=== PATIENT | male | born 1960 | race African-American/Black ===

== ENCOUNTER 2016-06-24 16:56 | Inpatient (IN) | payer OTHER ==
[2016-06-24 17:53] VITALS: BMI 27.8
--- NOTE | 2016-06-24 19:21 | HP ---
Admission ROS [facility] Chief Complaint: i want to go to rehab Allergies/Adverse Reactions: Allergies Allergy/AdvReac Type Severity Reaction Status Date / Time No Known Allergies Allergy Verified 06/24/16 17:55 History of Present Illness: 55 years old male with long history of alcohol nicotine dependence, hypertension asthma copd arthritis of legs, bipolar is admitted to rehab Exam Limitations: No Limitations - Ebola screening Have you traveled outside of the country in the last 21 days: No Have you had contact with anyone from an Ebola affected area: No Have you been sick,other than usual withdrawal symptoms: No Do you have a fever: No - Review of Systems Constitutional: No Symptoms Reported EENT: reports: Other (eye glasses) Respiratory: reports: SOB at Rest Cardiac: reports: No Symptoms Reported GI: reports: Poor Fluid Intake : reports: No Symptoms Reported Musculoskeletal: reports: Back Pain, Joint Pain Integumentary: reports: No Symptoms Reported Neuro: reports: No Symptoms reported Endocrine: reports: No Symptoms Reported Hematology: reports: No Symptoms Reported Psychiatric: reports: Judgement Intact, Orientated x3, Anxious, Depressed Other Systems: Reviewed and Negative Patient History - Patient Medical History Hx Anemia: No Hx Asthma: No Hx Chronic Obstructive Pulmonary Disease (COPD): Yes Hx Cancer: No Hx Cardiac Disorders: No Hx Congestive Heart Failure: No Hx Hypertension: Yes Hx Hypercholesterolemia: No Hx Pacemaker: No HX Cerebrovascular Accident: No Hx Seizures: No Hx Dementia: No Hx Diabetes: No Hx Gastrointestinal Disorders: No Hx Liver Disease: No Hx Genitourinary Disorders: No Hx Sexually Transmitted Disorders: No Hx Renal Disease (ESRD): No Hx Thyroid Disease: No Hx Human Immunodeficiency Virus (HIV): No Hx Hepatitis C: No Hx Depression: No Hx Suicide Attempt: No Hx Bipolar Disorder: Yes Hx Schizophrenia: No - Patient Surgical History Past Surgical History: Yes Hx Neurologic Surgery: No Hx Cataract Extraction: No Hx Cardiac Surgery: No Hx Lung Surgery: No Hx Breast Surgery: No Hx Breast Biopsy: No Hx Abdominal Surgery: No Hx Appendectomy: No Hx Cholecystectomy: No Hx Genitourinary Surgery: No Hx Orthopedic Surgery: No Other Surgical History: Circumcision in 1980 Anesthesia Reaction: No - PPD History Previous Implant?: Yes Documented Results: Negative w/proof Implanted On Prior R Admission?: Yes Date: 03/24/16 Results: 0 mm PPD to be Administered?: No - Smoking Cessation Smoking history: Current every day smoker Have you smoked in the past 12 months: Yes Aproximately how many cigarettes per day: 4 Cigars Per Day: 0 Hx Chewing Tobacco Use: No Initiated information on smoking cessation: Yes 'Breaking Loose' booklet given: 06/24/16 - Substance & Tx. History Hx Alcohol Use: Yes Hx Substance Use: Yes Substance Use Type: Alcohol, Cocaine Hx Substance Use Treatment: Yes - Substances Abused Alcohol Route: Oral Frequency: Daily Amount used: pint volka Age of first use: 13 Date of Last Use: 06/21/16 Family Disease History - Family Disease History Family Disease History: Diabetes: Father (htn), Brother, Sister (one sister - DM, drug use), Heart Disease: Father, Mother (htn) Admission Physical Exam S - Vital Signs Vital Signs: Vital Signs - 24 hr 06/24/16 17:50 Temperature 96.7 F L Pulse Rate 83 Respiratory 18 Rate Blood Pressure 152/96 - Physical General Appearance: Yes: No Apparent Distress, Nourished, Appropriately Dressed HEENTM: Yes: Hearing grossly Normal, Normal ENT Inspection, Normocephalic, Normal Voice Respiratory: Yes: Chest Non-Tender, Labored Respiration, No Respiratory Distress , No Accessory Muscle Use, Hyperresonant, Inspiration Neck: Yes: Supple, Trachea in good position Breast: Yes: Breasts Symetrical Cardiology: Yes: Regular Rhythm, Regular Rate, S1, S2 Abdominal: Yes: Non Tender, Soft Genitourinary: Yes: Within Normal Limits Back: Yes: Normal Inspection Musculoskeletal: Yes: full range of Motion, Gait Steady, Back pain, Muscle Pain , Muscle weakness (legs) Extremities: Yes: Normal Range of Motion, Non-Tender Neurological: Yes: Fully Oriented, Alert, Motor Strength 5/5, Normal Response, Depressed Affect Integumentary: Yes: Warm Lymphatic: Yes: Within Normal Limits - Diagnostic (1) Alcohol dependence with uncomplicated withdrawal Current Visit: Yes Status: Acute (2) Hypertension Current Visit: Yes Status: Acute Qualifiers: Hypertension type: essential hypertension Qualified Code(s): I10 - Essential (primary) hypertension (3) COPD (chronic obstructive pulmonary disease) Current Visit: Yes Status: Acute Qualifiers: COPD type: emphysema Emphysema type: unilateral Qualified Code(s ): J43.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 - Detox or Rehab [facility] Level of Care: Observation Bed Claeared for Rehab Admission: Yes [facility] Breath Alcohol Content Breath Alcohol Content: 0 Urine Drug Screen - Results Drug Screen Negative: No Urine Drug Screen Results: MALINDA-Cocaine, BZO-Benzodiazepines
[2016-06-24] MEDS ORDERED: LOPERAMIDE HCL 2 MG CAPSULE PO PRN (19:43)
[2016-06-24] MEDS ORDERED: ACETAMINOPHEN 325 MG TABLET (FP) PO PRN (19:43)
[2016-06-24] MEDS ORDERED: MENTHOL/PHENOL 1 EACH UD MM PRN (19:43)
[2016-06-24] MEDS ORDERED: MAGNESIUM HYDROX 2400MG/30ML ORAL SUSPENSION 30 ML CUP PO PRN (19:43)
[2016-06-24] MEDS ORDERED: MAGNESIUM CITRATE 300 ML BOTTLE PO PRN (19:43)
[2016-06-24] MEDS ORDERED: diphenhydrAMINE HCL 50 MG CAPSULE PO PRN (19:43)
[2016-06-24] MEDS ORDERED: P-EPHED 60MG/TRIPROLIDI 2.5MG TABLET PO PRN (19:43)
[2016-06-24] MEDS ORDERED: hydrOXYzine PAMOATE 50 MG CAPSULE (FP) PO PRN (19:43)
[2016-06-24] MEDS ORDERED: guaiFENesin/D-METHORPHAN HB 10 ML UNIT-DOSE CUPS PO PRN (19:43)
[2016-06-24] MEDS ORDERED: ALBUTEROL SO4 6.7 GM HFA INHALER IH PRN (19:46)
[2016-06-24] MEDS ORDERED: NAPROXEN 500 MG TABLET (FP) PO PRN (19:48)
[2016-06-24] MEDS ORDERED: CYCLOBENZAPRINE HCL 10 MG TABLET (FP) PO PRN (19:48)
[2016-06-24] MEDS: BUDESONIDE/FORMETEROL FUMARATE 80/4.5 mcg INHALER IH SCH (22:31)
[2016-06-24] MEDS: ACLIDINIUM BROMIDE 400 MCG/INH AERO.POWD IH SCH (22:31)
[2016-06-24] MEDS: THIAMINE HCL 100 MG TABLET (FP) PO SCH (22:31)
[2016-06-24] MEDS: LISINOPRIL 20 MG TABLET (FP) PO SCH (22:31)
[2016-06-24] MEDS: CLOTRIMAZOLE 1% CREAM 15 GM TUBE TP SCH (22:34)
[2016-06-24 22:57] LABS: URINE APPEARANCE CLEAR; URINE BILIRUBIN NEGATIVE (NEGATIVE); URINE BLOOD NEGATIVE (NEGATIVE); URINE COLOR STRAW; URINE GLUCOSE (UA) NEGATIVE (NEGATIVE); URINE KETONE NEGATIVE (NEGATIVE); URINE LEUK ESTERASE NEGATIVE (NEGATIVE); URINE NITRITE NEGATIVE (NEGATIVE); URINE PROTEIN NEGATIVE (NEGATIVE); URINE UROBILINOGEN NEGATIVE E.U./dl (0.2-1.0)
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
[2016-06-25] MEDS: PRENATAL VITAMINS W/ FOLIC ACID TABLET (FP) PO SCH (09:58)
[2016-06-25] MEDS: BUDESONIDE/FORMETEROL FUMARATE 80/4.5 mcg INHALER IH SCH ×2 (09:58→21:43)
[2016-06-25] MEDS: predniSONE 20 MG TABLET (UD) PO SCH (09:59)
[2016-06-25] MEDS: CLOTRIMAZOLE 1% CREAM 15 GM TUBE TP SCH ×2 (09:59→23:33)
[2016-06-25] MEDS: amLODIPine BESYLATE 10 MG TABLET (FP) PO SCH (09:59)
[2016-06-25] MEDS: QUEtiapine FUMARATE 50 MG TABLET PO SCH ×2 (10:00→21:42)
[2016-06-25] MEDS: ACLIDINIUM BROMIDE 400 MCG/INH AERO.POWD IH SCH ×2 (10:00→21:43)
[2016-06-25] MEDS: FLUoxetine HCL 20 MG CAPSULE (FP) PO SCH (10:00)
[2016-06-25 10:13] LABS: MCH 33.5 pg (25.7-33.7); MCHC 33.5 g/dl (32.0-35.9); MEAN CELL VOLUME 100.1 fl (80-96); MEAN PLT VOLUME 8.8 fl (7.5-11.1); PLATELET COUNT 252 K/MM3 (134-434); RDW 12.7 % (11.9-15.9); WHITE BLOOD COUNT 8.2 K/mm3 (4.0-10.0)
[2016-06-25 10:20] LABS: ALBUMIN 3.5 g/dl (3.4-5.0)
[2016-06-25 10:25] LABS: ALK PHOS 85 U/L (45-117); ANION GAP 8 (8-16); BILIRUBIN,TOTAL 0.4 mg/dL (0.2-1.0); CALCIUM 8.9 mg/dL (8.5-10.1); CO2 27 mmol/L (21-32); CREATININE 1.2 mg/dL (0.7-1.3); GLUCOSE,RANDOM 79 mg/dL (74-106); SGOT/AST 22 U/L (15-37); SGPT/ALT 42 U/L (12-78); TOT PROT 6.3 g/dl (6.4-8.2)
--- NOTE | 2016-06-25 13:20 | EKG ---
Test Reason : Blood Pressure : / mmHG Vent. Rate : 077 BPM Atrial Rate : 077 BPM P-R Int : 170 ms QRS Dur : 096 ms QT Int : 386 ms P-R-T Axes : 062 046 042 degrees QTc Int : 436 ms NORMAL SINUS RHYTHM POSSIBLE LEFT ATRIAL ENLARGEMENT LEFT VENTRICULAR HYPERTROPHY ABNORMAL ECG NO PREVIOUS ECGS AVAILABLE Confirmed by NADIA MADDOX MD ([id number]) on 06/25/2016 1:20:15 PM Referred By: Confirmed By:NADIA MADDOX MD
[2016-06-25] MEDS: ALBUTEROL SO4 2.5/IPRATROPIUM 0.5 INH SOL 3 ML VIAL.NEB. NEB PRN (17:40)
[2016-06-25] MEDS: MAG HYDROX/AL HYDROX/SIMETH 30 ML UNIT-DOSE CUP PO PRN (20:07)
[2016-06-25] MEDS: LISINOPRIL 20 MG TABLET (FP) PO SCH (21:42)
[2016-06-25] MEDS: QUEtiapine FUMARATE 200 MG TABLET PO SCH (21:42)
[2016-06-25] MEDS: THIAMINE HCL 100 MG TABLET (FP) PO SCH (21:42)
[2016-06-26] MEDS: BUDESONIDE/FORMETEROL FUMARATE 80/4.5 mcg INHALER IH SCH ×2 (09:50→22:04)
[2016-06-26] MEDS: amLODIPine BESYLATE 10 MG TABLET (FP) PO SCH (09:50)
[2016-06-26] MEDS: PRENATAL VITAMINS W/ FOLIC ACID TABLET (FP) PO SCH (09:50)
[2016-06-26] MEDS: predniSONE 20 MG TABLET (UD) PO SCH (09:51)
[2016-06-26] MEDS: CLOTRIMAZOLE 1% CREAM 15 GM TUBE TP SCH ×2 (09:51→22:03)
[2016-06-26] MEDS: FLUoxetine HCL 20 MG CAPSULE (FP) PO SCH (09:51)
[2016-06-26] MEDS: QUEtiapine FUMARATE 50 MG TABLET PO SCH ×2 (09:52→22:04)
[2016-06-26] MEDS: ACLIDINIUM BROMIDE 400 MCG/INH AERO.POWD IH SCH ×2 (09:53→22:06)
[2016-06-26] MEDS: MAG HYDROX/AL HYDROX/SIMETH 30 ML UNIT-DOSE CUP PO PRN ×2 (14:19→22:05)
[2016-06-26] MEDS: ALBUTEROL SO4 2.5/IPRATROPIUM 0.5 INH SOL 3 ML VIAL.NEB. NEB PRN (14:21)
[2016-06-26] MEDS: QUEtiapine FUMARATE 200 MG TABLET PO SCH (22:04)
[2016-06-26] MEDS: THIAMINE HCL 100 MG TABLET (FP) PO SCH (22:04)
[2016-06-26] MEDS: LISINOPRIL 20 MG TABLET (FP) PO SCH (22:04)
[2016-06-27] MEDS: QUEtiapine FUMARATE 50 MG TABLET PO SCH ×2 (09:59→21:37)
[2016-06-27] MEDS: amLODIPine BESYLATE 10 MG TABLET (FP) PO SCH (09:59)
[2016-06-27] MEDS: FLUoxetine HCL 20 MG CAPSULE (FP) PO SCH (09:59)
[2016-06-27] MEDS: PRENATAL VITAMINS W/ FOLIC ACID TABLET (FP) PO SCH (09:59)
[2016-06-27] MEDS: predniSONE 20 MG TABLET (UD) PO SCH (10:00)
[2016-06-27] MEDS: ACLIDINIUM BROMIDE 400 MCG/INH AERO.POWD IH SCH ×2 (10:01→21:38)
[2016-06-27] MEDS: CLOTRIMAZOLE 1% CREAM 15 GM TUBE TP SCH ×2 (10:01→21:37)
[2016-06-27] MEDS: BUDESONIDE/FORMETEROL FUMARATE 80/4.5 mcg INHALER IH SCH ×2 (10:01→21:37)
[2016-06-27] MEDS: MAG HYDROX/AL HYDROX/SIMETH 30 ML UNIT-DOSE CUP PO PRN (14:28)
[2016-06-27] MEDS: ALBUTEROL SO4 2.5/IPRATROPIUM 0.5 INH SOL 3 ML VIAL.NEB. NEB PRN (20:26)
[2016-06-27] MEDS: THIAMINE HCL 100 MG TABLET (FP) PO SCH (21:37)
[2016-06-27] MEDS: LISINOPRIL 20 MG TABLET (FP) PO SCH (21:37)
[2016-06-27] MEDS: QUEtiapine FUMARATE 200 MG TABLET PO SCH (21:37)
[2016-06-28] MEDS: PRENATAL VITAMINS W/ FOLIC ACID TABLET (FP) PO SCH (09:58)
[2016-06-28] MEDS: BUDESONIDE/FORMETEROL FUMARATE 80/4.5 mcg INHALER IH SCH ×2 (09:59→21:19)
[2016-06-28] MEDS: CLOTRIMAZOLE 1% CREAM 15 GM TUBE TP SCH ×2 (09:59→21:19)
[2016-06-28] MEDS: QUEtiapine FUMARATE 50 MG TABLET PO SCH ×2 (09:59→21:20)
[2016-06-28] MEDS: amLODIPine BESYLATE 10 MG TABLET (FP) PO SCH (09:59)
[2016-06-28] MEDS: FLUoxetine HCL 20 MG CAPSULE (FP) PO SCH (09:59)
[2016-06-28] MEDS: predniSONE 20 MG TABLET (UD) PO SCH (09:59)
[2016-06-28] MEDS: ALBUTEROL SO4 2.5/IPRATROPIUM 0.5 INH SOL 3 ML VIAL.NEB. NEB PRN (09:59)
[2016-06-28] MEDS: ACLIDINIUM BROMIDE 400 MCG/INH AERO.POWD IH SCH ×2 (11:56→21:21)
[2016-06-28] MEDS: MAG HYDROX/AL HYDROX/SIMETH 30 ML UNIT-DOSE CUP PO PRN (14:42)
[2016-06-28] MEDS: LISINOPRIL 20 MG TABLET (FP) PO SCH (21:20)
[2016-06-28] MEDS: QUEtiapine FUMARATE 200 MG TABLET PO SCH (21:20)
[2016-06-28] MEDS: THIAMINE HCL 100 MG TABLET (FP) PO SCH (21:20)
[2016-06-29] MEDS: amLODIPine BESYLATE 10 MG TABLET (FP) PO SCH (09:50)
[2016-06-29] MEDS: predniSONE 20 MG TABLET (UD) PO SCH (09:50)
[2016-06-29] MEDS: FLUoxetine HCL 20 MG CAPSULE (FP) PO SCH (09:50)
[2016-06-29] MEDS: QUEtiapine FUMARATE 50 MG TABLET PO SCH ×2 (09:50→21:09)
[2016-06-29] MEDS: PRENATAL VITAMINS W/ FOLIC ACID TABLET (FP) PO SCH (09:50)
[2016-06-29] MEDS: BUDESONIDE/FORMETEROL FUMARATE 80/4.5 mcg INHALER IH SCH ×2 (09:50→21:08)
[2016-06-29] MEDS: ACLIDINIUM BROMIDE 400 MCG/INH AERO.POWD IH SCH ×2 (09:50→21:09)
[2016-06-29] MEDS: CLOTRIMAZOLE 1% CREAM 15 GM TUBE TP SCH ×2 (09:51→21:09)
[2016-06-29] MEDS: ALBUTEROL SO4 2.5/IPRATROPIUM 0.5 INH SOL 3 ML VIAL.NEB. NEB PRN (14:38)
[2016-06-29] MEDS: THIAMINE HCL 100 MG TABLET (FP) PO SCH (21:08)
[2016-06-29] MEDS: LISINOPRIL 20 MG TABLET (FP) PO SCH (21:09)
[2016-06-29] MEDS: QUEtiapine FUMARATE 200 MG TABLET PO SCH (21:09)
[2016-06-30] MEDS: predniSONE 20 MG TABLET (UD) PO SCH (09:45)
[2016-06-30] MEDS: QUEtiapine FUMARATE 50 MG TABLET PO SCH (09:45)
[2016-06-30] MEDS: CLOTRIMAZOLE 1% CREAM 15 GM TUBE TP SCH ×2 (09:45→21:23)
[2016-06-30] MEDS: amLODIPine BESYLATE 10 MG TABLET (FP) PO SCH (09:45)
[2016-06-30] MEDS: FLUoxetine HCL 20 MG CAPSULE (FP) PO SCH (09:46)
[2016-06-30] MEDS: PRENATAL VITAMINS W/ FOLIC ACID TABLET (FP) PO SCH (09:46)
[2016-06-30] MEDS: BUDESONIDE/FORMETEROL FUMARATE 80/4.5 mcg INHALER IH SCH ×2 (09:46→21:22)
[2016-06-30] MEDS: ACLIDINIUM BROMIDE 400 MCG/INH AERO.POWD IH SCH ×2 (09:46→22:37)
[2016-06-30] MEDS: MAG HYDROX/AL HYDROX/SIMETH 30 ML UNIT-DOSE CUP PO PRN (10:37)
[2016-06-30] MEDS ORDERED: ALBUTEROL SO4 2.5/IPRATROPIUM 0.5 INH SOL 3 ML VIAL.NEB. NEB PRN (11:05)
--- NOTE | 2016-06-30 14:36 | PN ---
Psychiatric Progress Note Vital Signs: Vital Signs Period Temp Pulse Resp BP Sys/Shi Pulse Ox Last 24 Hr 97.9 F 79-89 18-20 124-131/73-81 Date of Session: 06/30/16 Chief Complaint:: Insomnia HPI: Patient addressing Alcohol Dependence comorbid with Nicotine Dependence and Bipolar II Disorder ROS: COPD, HTN, Arthritis, LBP, Fungal infection of feet Current Medications: Active Medications Generic Name Dose Route Start Last Admin Trade Name Freq PRN Reason Stop Dose Admin Acetaminophen 650 mg 06/24/16 19:43 Tylenol - PO Q4H PRN PAIN Aclidinium [place] 1 puff 06/24/16 22:00 06/30/16 09:46 Tudorza - IH Not Given BID CARLO Al Hydroxide/Mg Hydroxide 30 ml 06/24/16 19:43 06/30/16 10:37 Mylanta Oral Suspension - PO 30 ml Q6H PRN Administration DYSPEPSIA Albuterol Sulfate 2 puff 06/24/16 19:46 Ventolin Hfa Inhaler - IH Q4H PRN SHORT OF BREATH/WHEEZING Albuterol Sulfate 1 amp 06/30/16 11:12 Ventolin 0.083% Nebulizer Soln - NEB Q6H PRN SHORT OF BREATH/WHEEZING Amlodipine Besylate 10 mg 06/25/16 10:00 06/30/16 09:45 Norvasc - PO 10 mg DAILY CARLO Administration Budesonide/Formoterol Fumarate 2 puff 06/24/16 22:00 06/30/16 09:46 Symbicort 80/4.5mcg - IH Not Given BID CARLO Clotrimazole 1 applic 06/24/16 22:00 06/30/16 09:45 Lotrimin 1% Cream - TP Not Given BID CARLO Cyclobenzaprine HCl 10 mg 06/24/16 19:48 Flexeril - PO TID PRN MUSCLE SPASMS Diphenhydramine HCl 50 mg 06/24/16 19:43 Benadryl - PO HSMR1 PRN INSOMNIA Eucalyptus/Menthol/Phenol/Sorbitol 1 each 06/24/16 19:43 Cepastat Lozenge - MM Q4H PRN SORE THROAT Fluoxetine HCl 20 mg 06/25/16 10:00 06/30/16 09:46 Prozac - PO 20 mg DAILY CARLO Administration Guaifenesin 10 ml 06/24/16 19:43 Robitussin Dm - PO Q6H PRN COUGH Hydroxyzine Pamoate 50 mg 06/24/16 19:43 Vistaril - PO Q4H PRN AGITATION Lisinopril 20 mg 06/24/16 22:00 06/29/16 21:09 Prinivil PO 20 mg HS CARLO Administration Loperamide HCl 4 mg 06/24/16 19:43 Imodium - PO Q6H PRN DIARRHEA Magnesium Citrate 300 ml 06/24/16 19:43 Citroma - PO Q48H PRN CONSTIPATION Magnesium Hydroxide 30 ml 06/24/16 19:43 Milk Of Magnesia - PO DAILY PRN CONSTIPATION Naproxen 500 mg 06/24/16 19:48 Naprosyn - PO BID PRN BACK PAIN Prednisone 20 mg 06/25/16 10:00 06/30/16 09:45 Deltasone - PO 20 mg DAILY CARLO Administration Multivit/Folic Acid/Iron 1 tab 06/25/16 10:00 06/30/16 09:46 Vitamins (Sjr) - PO Not Given DAILY CARLO Pseudoephedrine/Triprolidine 1 combo 06/24/16 19:43 Actifed - PO TID PRN NASAL CONGESTION Quetiapine Fumarate 300 mg 06/30/16 22:00 Seroquel - PO HS CARLO Thiamine HCl 100 mg 06/24/16 22:00 06/29/16 21:08 Vitamin B1 - PO 100 mg HS CARLO Administration Medication(s) Change(s): Increase Seroquel to 300 mg po HS Current Side Effect: No Lab tests ordered: Yes Lab tests reviewed: Yes Provider note:: Patient reports experiencing difficulty to asleep. Told script writer that he has not been sleeping poorly despite takind Seroquel 250 mg at bedtime. Requests that his bedtime dosage be increased to 300 mg Total face to face time:: 25 Mental Status Exam - Mental Status Exam Alert and Oriented to: Time, Place, Person Cognitive Function: Fair Patient Appearance: Well Groomed Mood: Hopeful, Euthymic Affect: Appropriate Patient Behavior: Cooperative Speech Pattern: Clear Voice Loudness: Normal Thought Process: Intact Thought Disorder: Not Present Hallucinations: Denies Suicidal Ideation: Denies Insight/Judgement: Fair Sleep: Poorly Appetite: Good Muscle strength/Tone: Normal Gait/Station: Normal Psychiatric Treatment Plan - Problem List (1) Alcohol dependence with uncomplicated withdrawal Current Visit: Yes (2) Nicotine dependence Current Visit: Yes Qualifiers: Nicotine product type: cigarettes Substance use status: uncomplicated Qualified Code(s): F17.210 - Nicotine dependence, cigarettes, uncomplicated (3) Bipolar II disorder Current Visit: Yes (4) COPD (chronic obstructive pulmonary disease) Current Visit: Yes Qualifiers: COPD type: emphysema Emphysema type: unilateral Qualified Code(s ): J43.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 2) Start Seroquel 300 mg po HS. 3) Monitor progress
[2016-06-30] MEDS: QUEtiapine FUMARATE 300 MG TABLET PO SCH (21:22)
[2016-06-30] MEDS: LISINOPRIL 20 MG TABLET (FP) PO SCH (21:23)
[2016-06-30] MEDS: THIAMINE HCL 100 MG TABLET (FP) PO SCH (21:23)
[2016-07-01] MEDS: amLODIPine BESYLATE 10 MG TABLET (FP) PO SCH (09:41)
[2016-07-01] MEDS: FLUoxetine HCL 20 MG CAPSULE (FP) PO SCH (09:41)
[2016-07-01] MEDS: PRENATAL VITAMINS W/ FOLIC ACID TABLET (FP) PO SCH (09:42)
[2016-07-01] MEDS: predniSONE 20 MG TABLET (UD) PO SCH (09:42)
[2016-07-01] MEDS: CLOTRIMAZOLE 1% CREAM 15 GM TUBE TP SCH ×2 (09:43→21:11)
[2016-07-01] MEDS: ACLIDINIUM BROMIDE 400 MCG/INH AERO.POWD IH SCH ×2 (09:43→21:12)
[2016-07-01] MEDS: BUDESONIDE/FORMETEROL FUMARATE 80/4.5 mcg INHALER IH SCH ×2 (09:43→21:10)
[2016-07-01] MEDS: THIAMINE HCL 100 MG TABLET (FP) PO SCH (21:11)
[2016-07-01] MEDS: LISINOPRIL 20 MG TABLET (FP) PO SCH (21:11)
[2016-07-01] MEDS: QUEtiapine FUMARATE 300 MG TABLET PO SCH (21:11)
[2016-07-01] MEDS: ALBUTEROL SO4 0.083% IH SOL 2.5 MG/3 ML VIAL.NEB. NEB PRN (21:12)
[2016-07-02] MEDS: amLODIPine BESYLATE 10 MG TABLET (FP) PO SCH (09:43)
[2016-07-02] MEDS: predniSONE 20 MG TABLET (UD) PO SCH (09:43)
[2016-07-02] MEDS: PRENATAL VITAMINS W/ FOLIC ACID TABLET (FP) PO SCH (09:43)
[2016-07-02] MEDS: FLUoxetine HCL 20 MG CAPSULE (FP) PO SCH (09:43)
[2016-07-02] MEDS: CLOTRIMAZOLE 1% CREAM 15 GM TUBE TP SCH ×2 (09:43→21:25)
[2016-07-02] MEDS: ALBUTEROL SO4 0.083% IH SOL 2.5 MG/3 ML VIAL.NEB. NEB PRN ×2 (09:46→21:28)
[2016-07-02] MEDS: BUDESONIDE/FORMETEROL FUMARATE 80/4.5 mcg INHALER IH SCH ×2 (11:00→21:23)
[2016-07-02] MEDS: ACLIDINIUM BROMIDE 400 MCG/INH AERO.POWD IH SCH ×2 (11:00→21:25)
[2016-07-02] MEDS: THIAMINE HCL 100 MG TABLET (FP) PO SCH (21:24)
[2016-07-02] MEDS: LISINOPRIL 20 MG TABLET (FP) PO SCH (21:24)
[2016-07-02] MEDS: QUEtiapine FUMARATE 300 MG TABLET PO SCH (21:24)
[2016-07-03] MEDS: BUDESONIDE/FORMETEROL FUMARATE 80/4.5 mcg INHALER IH SCH ×2 (09:46→21:12)
[2016-07-03] MEDS: ACLIDINIUM BROMIDE 400 MCG/INH AERO.POWD IH SCH ×2 (09:47→21:12)
[2016-07-03] MEDS: predniSONE 20 MG TABLET (UD) PO SCH (09:47)
[2016-07-03] MEDS: CLOTRIMAZOLE 1% CREAM 15 GM TUBE TP SCH ×2 (09:47→21:12)
[2016-07-03] MEDS: amLODIPine BESYLATE 10 MG TABLET (FP) PO SCH (09:47)
[2016-07-03] MEDS: FLUoxetine HCL 20 MG CAPSULE (FP) PO SCH (09:47)
[2016-07-03] MEDS: PRENATAL VITAMINS W/ FOLIC ACID TABLET (FP) PO SCH (10:00)
[2016-07-03] MEDS: THIAMINE HCL 100 MG TABLET (FP) PO SCH (21:11)
[2016-07-03] MEDS: LISINOPRIL 20 MG TABLET (FP) PO SCH (21:11)
[2016-07-03] MEDS: QUEtiapine FUMARATE 300 MG TABLET PO SCH (21:11)
[2016-07-04] MEDS: FLUoxetine HCL 20 MG CAPSULE (FP) PO SCH (09:48)
[2016-07-04] MEDS: BUDESONIDE/FORMETEROL FUMARATE 80/4.5 mcg INHALER IH SCH ×2 (09:48→21:22)
[2016-07-04] MEDS: amLODIPine BESYLATE 10 MG TABLET (FP) PO SCH (09:48)
[2016-07-04] MEDS: ACLIDINIUM BROMIDE 400 MCG/INH AERO.POWD IH SCH ×2 (09:48→21:23)
[2016-07-04] MEDS: predniSONE 20 MG TABLET (UD) PO SCH (09:48)
[2016-07-04] MEDS: CLOTRIMAZOLE 1% CREAM 15 GM TUBE TP SCH ×2 (09:48→21:23)
[2016-07-04] MEDS: PRENATAL VITAMINS W/ FOLIC ACID TABLET (FP) PO SCH (09:49)
[2016-07-04] MEDS: LISINOPRIL 20 MG TABLET (FP) PO SCH (21:22)
[2016-07-04] MEDS: QUEtiapine FUMARATE 300 MG TABLET PO SCH (21:22)
[2016-07-04] MEDS: THIAMINE HCL 100 MG TABLET (FP) PO SCH (21:22)
[2016-07-05] MEDS: FLUoxetine HCL 20 MG CAPSULE (FP) PO SCH (09:32)
[2016-07-05] MEDS: amLODIPine BESYLATE 10 MG TABLET (FP) PO SCH (09:32)
[2016-07-05] MEDS: CLOTRIMAZOLE 1% CREAM 15 GM TUBE TP SCH ×2 (09:33→21:17)
[2016-07-05] MEDS: PRENATAL VITAMINS W/ FOLIC ACID TABLET (FP) PO SCH (09:33)
[2016-07-05] MEDS: BUDESONIDE/FORMETEROL FUMARATE 80/4.5 mcg INHALER IH SCH ×2 (09:33→21:16)
[2016-07-05] MEDS: predniSONE 20 MG TABLET (UD) PO SCH (09:33)
[2016-07-05] MEDS: ACLIDINIUM BROMIDE 400 MCG/INH AERO.POWD IH SCH ×2 (09:33→21:17)
[2016-07-05] MEDS: ALBUTEROL SO4 0.083% IH SOL 2.5 MG/3 ML VIAL.NEB. NEB PRN (17:41)
[2016-07-05] MEDS ORDERED: ALBUTEROL SO4 0.083% IH SOL 2.5 MG/3 ML VIAL.NEB. NEB PRN (17:53)
[2016-07-05] MEDS: QUEtiapine FUMARATE 300 MG TABLET PO SCH (21:17)
[2016-07-05] MEDS: THIAMINE HCL 100 MG TABLET (FP) PO SCH (21:17)
[2016-07-05] MEDS: LISINOPRIL 20 MG TABLET (FP) PO SCH (21:17)
[2016-07-06] MEDS: CLOTRIMAZOLE 1% CREAM 15 GM TUBE TP SCH ×2 (09:32→21:35)
[2016-07-06] MEDS: predniSONE 20 MG TABLET (UD) PO SCH (09:32)
[2016-07-06] MEDS: amLODIPine BESYLATE 10 MG TABLET (FP) PO SCH (09:32)
[2016-07-06] MEDS: FLUoxetine HCL 20 MG CAPSULE (FP) PO SCH (09:32)
[2016-07-06] MEDS: BUDESONIDE/FORMETEROL FUMARATE 80/4.5 mcg INHALER IH SCH ×2 (09:32→21:35)
[2016-07-06] MEDS: PRENATAL VITAMINS W/ FOLIC ACID TABLET (FP) PO SCH (09:32)
[2016-07-06] MEDS: ACLIDINIUM BROMIDE 400 MCG/INH AERO.POWD IH SCH ×2 (09:33→22:47)
[2016-07-06] MEDS: QUEtiapine FUMARATE 300 MG TABLET PO SCH (21:34)
[2016-07-06] MEDS: THIAMINE HCL 100 MG TABLET (FP) PO SCH (21:35)
[2016-07-06] MEDS: LISINOPRIL 20 MG TABLET (FP) PO SCH (21:35)
[2016-07-07] MEDS: FLUoxetine HCL 20 MG CAPSULE (FP) PO SCH (10:11)
[2016-07-07] MEDS: amLODIPine BESYLATE 10 MG TABLET (FP) PO SCH (10:11)
[2016-07-07] MEDS: BUDESONIDE/FORMETEROL FUMARATE 80/4.5 mcg INHALER IH SCH ×2 (10:12→21:12)
[2016-07-07] MEDS: PRENATAL VITAMINS W/ FOLIC ACID TABLET (FP) PO SCH (10:12)
[2016-07-07] MEDS: predniSONE 20 MG TABLET (UD) PO SCH (10:12)
[2016-07-07] MEDS: CLOTRIMAZOLE 1% CREAM 15 GM TUBE TP SCH ×2 (10:12→21:13)
[2016-07-07] MEDS: ACLIDINIUM BROMIDE 400 MCG/INH AERO.POWD IH SCH ×2 (10:13→21:13)
--- NOTE | 2016-07-07 14:11 | PN ---
Psychiatric Progress Note Vital Signs: Vital Signs Period Temp Pulse Resp BP Sys/Shi Pulse Ox Last 24 Hr 98 F 71-84 16-20 131-144/72-82 Date of Session: 07/07/16 Chief Complaint:: discharge visit HPI: Patient addressing Alcohol Dependence comorbid with Nicotine Dependence and Bipolar II Disorder ROS: COPD, HTN, Arthritis, LBP, Fungal infection of feet medically managed Current Medications: Active Medications Generic Name Dose Route Start Last Admin Trade Name Freq PRN Reason Stop Dose Admin Acetaminophen 650 mg 06/24/16 19:43 Tylenol - PO Q4H PRN PAIN Aclidinium [place] 1 puff 06/24/16 22:00 07/07/16 10:13 Tudorza - IH Not Given BID CARLO Al Hydroxide/Mg Hydroxide 30 ml 06/24/16 19:43 06/30/16 10:37 Mylanta Oral Suspension - PO 30 ml Q6H PRN Administration DYSPEPSIA Albuterol Sulfate 2 puff 06/24/16 19:46 Ventolin Hfa Inhaler - IH Q4H PRN SHORT OF BREATH/WHEEZING Albuterol Sulfate 1 amp 07/05/16 17:53 07/06/16 12:50 Ventolin 0.083% Nebulizer Soln - NEB 1 amp Q4H PRN Administration SHORT OF BREATH/WHEEZING Amlodipine Besylate 10 mg 06/25/16 10:00 07/07/16 10:11 Norvasc - PO 10 mg DAILY CARLO Administration Budesonide/Formoterol Fumarate 2 puff 06/24/16 22:00 07/07/16 10:12 Symbicort 80/4.5mcg - IH 2 puff BID CARLO Administration Clotrimazole 1 applic 06/24/16 22:00 07/07/16 10:12 Lotrimin 1% Cream - TP Not Given BID CARLO Cyclobenzaprine HCl 10 mg 06/24/16 19:48 Flexeril - PO TID PRN MUSCLE SPASMS Diphenhydramine HCl 50 mg 06/24/16 19:43 Benadryl - PO HSMR1 PRN INSOMNIA Eucalyptus/Menthol/Phenol/Sorbitol 1 each 06/24/16 19:43 Cepastat Lozenge - MM Q4H PRN SORE THROAT Fluoxetine HCl 20 mg 06/25/16 10:00 07/07/16 10:11 Prozac - PO 20 mg DAILY CARLO Administration Guaifenesin 10 ml 06/24/16 19:43 Robitussin Dm - PO Q6H PRN COUGH Hydroxyzine Pamoate 50 mg 06/24/16 19:43 Vistaril - PO Q4H PRN AGITATION Lisinopril 20 mg 06/24/16 22:00 07/06/16 21:35 Prinivil PO 20 mg HS CARLO Administration Loperamide HCl 4 mg 06/24/16 19:43 Imodium - PO Q6H PRN DIARRHEA Magnesium Citrate 300 ml 06/24/16 19:43 Citroma - PO Q48H PRN CONSTIPATION Magnesium Hydroxide 30 ml 06/24/16 19:43 Milk Of Magnesia - PO DAILY PRN CONSTIPATION Naproxen 500 mg 06/24/16 19:48 Naprosyn - PO BID PRN BACK PAIN Prednisone 20 mg 06/25/16 10:00 07/07/16 10:12 Deltasone - PO 20 mg DAILY CARLO Administration Multivit/Folic Acid/Iron 1 tab 06/25/16 10:00 07/07/16 10:12 Vitamins (Sjr) - PO Not Given DAILY CARLO Pseudoephedrine/Triprolidine 1 combo 06/24/16 19:43 07/03/16 17:53 Actifed - PO 1 combo TID PRN Administration NASAL CONGESTION Quetiapine Fumarate 300 mg 06/30/16 22:00 07/06/16 21:34 Seroquel - PO 300 mg HS CARLO Administration Thiamine HCl 100 mg 06/24/16 22:00 07/06/16 21:35 Vitamin B1 - PO 100 mg HS CARLO Administration Current Side Effect: No Lab tests ordered: No Lab tests reviewed: Yes Provider note:: Patient requested to be discharged due to family issues, reports his 87 year old father in the hospital due to car accident and he needs to go to [place] to visit his father. He been at [facility] since 06/24, he focuses on awareness of negative impact relapse would have on major life areas, including physical and mental health. He reports has been feeling fine, with Seroquel and Prozac, no side-effets reported, reviewed indications, properties of his current medications, scripts provided for 30 days. Discussed importance of taking medications as prescribed and scheduling/keeping aftercare appointments, he f/u at [facility] outpatient treatment program. Patient appears stable for discharge tomorrow 07/08/16. Total face to face time:: 30 Mental Status Exam - Mental Status Exam Alert and Oriented to: Time, Place, Person Cognitive Function: Good Patient Appearance: Well Groomed Affect: Appropriate, Mood Congruent Patient Behavior: Appropriate, Cooperative Speech Pattern: Clear, Appropriate Voice Loudness: Normal Thought Process: Intact Thought Disorder: Not Present Hallucinations: Denies Suicidal Ideation: Denies Homicidal Ideation: Denies Insight/Judgement: Fair Sleep: Fair Appetite: Fair Muscle strength/Tone: Normal Gait/Station: Normal Psychiatric Treatment Plan - Problem List (1) Alcohol dependence with uncomplicated withdrawal Current Visit: Yes (2) Nicotine dependence Current Visit: Yes Qualifiers: Nicotine product type: cigarettes Substance use status: uncomplicated Qualified Code(s): F17.210 - Nicotine dependence, cigarettes, uncomplicated (3) Bipolar II disorder Current Visit: Yes
[2016-07-07] MEDS: LISINOPRIL 20 MG TABLET (FP) PO SCH (21:12)
[2016-07-07] MEDS: THIAMINE HCL 100 MG TABLET (FP) PO SCH (21:12)
[2016-07-07] MEDS: QUEtiapine FUMARATE 300 MG TABLET PO SCH (21:12)
[2016-07-08 07:09] VITALS: BP 135/75; PULSE 68; TEMP 98.1
== END 2016-07-08 07:35 | disposition home or self-care (01) | DRG 772 ==
LOC: YASAS 16:56 → Y3W 17:52
PROVIDERS: ADMIT Psychiatry & Neurology Psychiatry; ATTEND Psychiatry & Neurology Psychiatry
PROC: HZ42ZZZ Group Counseling for Substance Abuse Treatment, Cognitive-Behavioral (ICD-10-PCS; principal; 2016-07-08)
DX: F10.230 Alcohol dependence with withdrawal, uncomplicated (principal); F17.210 Nicotine dependence, cigarettes, uncomplicated; F31.81 Bipolar II disorder; J43.0 Unilateral pulmonary emphysema [MacLeod's syndrome]; I10 Essential (primary) hypertension; B35.3 Tinea pedis; M62.81 Muscle weakness (generalized)
CPT/HCPCS: 36415; 80053; 81003; 85027; 86593; 93005; 93010; 94640

== ENCOUNTER 2016-10-18 11:22 | Inpatient (IN) | payer OTHER ==
[2016-10-18 11:51] VITALS: BMI 27.2
--- NOTE | 2016-10-18 12:10 | HP ---
CIWA Score - CIWA Score Nausea/Vomitin-Mild Nausea/No Vomiting Muscle Tremors: 4-Moderate,w/Arms Extend Anxiety: 4-Mod. Anxious/Guarded Agitation: 1-Slight > Activity Paroxysmal Sweats: 1-Minimal Palms Moist Orientation: 1-Uncertain about Date Tacttile Disturbances: 1-Very Mild Itch/Numbness Auditory Disturbances: 1-Very Mild Visual Disturbances: 1-Very Mild Sensitivity Headache: 1-Very Mild CIWA-Ar Total Score: 16 Admission ROS S - HPI Chief Complaint: I'm tired, I disappointed my family, I want to get clean Allergies/Adverse Reactions: Allergies Allergy/AdvReac Type Severity Reaction Status Date / Time No Known Allergies Allergy Verified 10/18/16 12:35 History of Present Illness: 55 yo gentleman here for detox from alcohol. Previously here in May 2016 for rehab but relapsed a month ago. No seizures but does have black outs. Exam Limitations: Clinical Condition - Ebola screening Have you traveled outside of the country in the last 21 days: No Have you had contact with anyone from an Ebola affected area: No Have you been sick,other than usual withdrawal symptoms: No Do you have a fever: No - Review of Systems Constitutional: Loss of Appetite, Malaise, Changes in sleep, Weakness, Unintentional Wgt. Loss EENT: reports: Blurred Vision Respiratory: reports: SOB with Exertion Cardiac: reports: No Symptoms Reported GI: reports: Nausea, Poor Appetite, Indigestion, Abdominal cramping : reports: Frequency Musculoskeletal: reports: Back Pain, Joint Pain Integumentary: reports: Dryness Neuro: reports: Headache, Tremors Endocrine: reports: No Symptoms Reported Hematology: reports: No Symptoms Reported Psychiatric: reports: Judgement Intact, Mood/Affect Appropiate, Anxious Other Systems: Reviewed and Negative Patient History - Patient Medical History Hx Anemia: No Hx Asthma: Yes Hx Chronic Obstructive Pulmonary Disease (COPD): Yes Hx Cancer: No Hx Cardiac Disorders: No Hx Congestive Heart Failure: No Hx Hypertension: No Hx Hypercholesterolemia: No Hx Pacemaker: No HX Cerebrovascular Accident: No Hx Seizures: No Hx Dementia: No Hx Diabetes: No Hx Gastrointestinal Disorders: No Hx Liver Disease: No Hx Genitourinary Disorders: No Hx Sexually Transmitted Disorders: No Hx Renal Disease (ESRD): No Hx Thyroid Disease: No Hx Human Immunodeficiency Virus (HIV): No Hx Hepatitis C: No Hx Depression: Yes (hospitalized ) Hx Suicide Attempt: Yes (with drugs/drinking) Hx Bipolar Disorder: Yes Hx Schizophrenia: No Other Medical History: arthritis back, knee, fingers - Patient Surgical History Past Surgical History: Yes Hx Neurologic Surgery: No Hx Cataract Extraction: No Hx Cardiac Surgery: No Hx Lung Surgery: No Hx Breast Surgery: No Hx Breast Biopsy: No Hx Abdominal Surgery: No Hx Appendectomy: No Hx Cholecystectomy: No Hx Genitourinary Surgery: Yes ([id number]) Hx Section: No Hx Orthopedic Surgery: No Anesthesia Reaction: No - PPD History Previous Implant?: Yes Date: 03/24/16 Results: 0 mm PPD to be Administered?: No - Reproductive History Patient is a Female of Child Bearing Age (11 -55 yrs old): No (male) - Smoking Cessation Smoking history: Current every day smoker Have you smoked in the past 12 months: Yes Aproximately how many cigarettes per day: 4 Cigars Per Day: 0 Hx Chewing Tobacco Use: No Initiated information on smoking cessation: Yes 'Breaking Loose' booklet given: 10/18/16 (give on floor) - Substance & Tx. History Hx Alcohol Use: Yes Hx Substance Use: Yes Substance Use Type: Alcohol, Cocaine Hx Substance Use Treatment: Yes (detox, rehab) - Substances Abused Alcohol Route: Oral Frequency: Daily Amount used: 1/5 liquor; six 24oz beers Age of first use: 12 Date of Last Use: 10/18/16 Cocaine Route: Smoking Frequency: 3-6 times per week Amount used: $100 Age of first use: 39 Date of Last Use: 10/17/16 Family Disease History - Family Disease History Family Disease History: Diabetes: Father (htn, alive,), Brother (), Sister (one sister - DM, drug use), Heart Disease: Father, Mother (htn , alive), CA: Brother, Other: Son (two - healthy), Daughter (two -healthy) Admission Physical Exam BHS - Vital Signs Vital Signs: Vital Signs - 24 hr 10/18/16 11:49 Temperature 96.3 F L Pulse Rate 83 Respiratory 20 Rate Blood Pressure 120/69 - Physical General Appearance: Yes: Nourished, Appropriately Dressed, Mild Distress, Anxious HEENTM: Yes: Hearing grossly Normal, Normocephalic, Normal Voice, Pharynx Normal Respiratory: Yes: Decreased Breath Sounds, No Respiratory Distress Neck: Yes: No masses,lesions,Nodules, Supple Breast: Yes: Breast Exam Deferred Cardiology: Yes: Regular Rhythm, Regular Rate Abdominal: Yes: Soft Genitourinary: Yes: Within Normal Limits Back: Yes: Decreased Range of Motion Musculoskeletal: Yes: Gait Steady, Back pain, Muscle Pain, Other (needs cane) Extremities: Yes: Other (moves stiffly - knees slightly bowed) Neurological: Yes: Fully Oriented, Alert, Normal Mood/Affect, Normal Response Integumentary: Yes: Normal Color, Warm Lymphatic: Yes: Within Normal Limits - Diagnostic (1) ARTHRITIS OF KNEES,HANDS Current Visit: Yes Status: Chronic (2) SYNCOPE ALCOHOL RELATED Current Visit: Yes Status: Chronic (3) Alcohol dependence with uncomplicated withdrawal Current Visit: Yes Status: Chronic (4) COPD (chronic obstructive pulmonary disease) Current Visit: Yes Status: Chronic Qualifiers: COPD type: emphysema Emphysema type: unilateral Qualified Code(s ): J43.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] (5) Nicotine dependence Current Visit: Yes Status: Chronic Qualifiers: Nicotine product type: cigarettes Substance use status: uncomplicated Qualified Code(s): F17.210 - Nicotine dependence, cigarettes, uncomplicated BHS Breath Alcohol Content Breath Alcohol Content: 0.029 Urine Drug Screen - Results Drug Screen Negative: No Urine Drug Screen Results: MALINDA-Cocaine
[2016-10-18] MEDS ORDERED: LOPERAMIDE HCL 2 MG CAPSULE PO PRN (12:26)
[2016-10-18] MEDS ORDERED: ACETAMINOPHEN 325 MG TABLET (FP) PO PRN (12:26)
[2016-10-18] MEDS ORDERED: guaiFENesin/D-METHORPHAN HB 10 ML UNIT-DOSE CUPS PO PRN (12:26)
[2016-10-18] MEDS ORDERED: hydrOXYzine PAMOATE 50 MG CAPSULE (FP) PO PRN (12:26)
[2016-10-18] MEDS ORDERED: MAGNESIUM HYDROX 2400MG/30ML ORAL SUSPENSION 30 ML CUP PO PRN (12:26)
[2016-10-18] MEDS ORDERED: MAGNESIUM CITRATE 300 ML BOTTLE PO PRN (12:26)
[2016-10-18] MEDS ORDERED: chlordiazePOXIDE HCL 25 MG CAPSULE PO PRN (12:26)
[2016-10-18] MEDS ORDERED: diphenhydrAMINE HCL 50 MG CAPSULE PO PRN (12:26)
[2016-10-18] MEDS ORDERED: MENTHOL/PHENOL 1 EACH UD MM PRN (12:26)
[2016-10-18] MEDS ORDERED: P-EPHED 60MG/TRIPROLIDI 2.5MG TABLET PO PRN (12:26)
[2016-10-18] MEDS ORDERED: MAG HYDROX/AL HYDROX/SIMETH 30 ML UNIT-DOSE CUP PO PRN (12:26)
[2016-10-18] MEDS ORDERED: ALBUTEROL SO4 6.7 GM HFA INHALER IH PRN (12:28)
[2016-10-18] MEDS ORDERED: ALBUTEROL SO4 0.083% IH SOL 2.5 MG/3 ML VIAL.NEB. NEB PRN (12:28)
[2016-10-18] MEDS ORDERED: LIDOCAINE 5% TOPICAL PATCH TP SCH (12:30)
[2016-10-18] MEDS ORDERED: chlordiazePOXIDE HCL 25 MG CAPSULE PO ONE (13:30)
[2016-10-18] MEDS: TIOTROPIUM BROMIDE 18 MCG/INH (DEVICE W/ 5 CAPSULES) IH SCH (14:48)
[2016-10-18] MEDS: BUDESONIDE/FORMETEROL FUMARATE 80/4.5 mcg INHALER IH SCH ×2 (14:48→22:58)
--- NOTE | 2016-10-18 15:20 | CONSULT ---
[facility] Psychiatric Consult - Data Date of interview: 10/18/16 Admission source: [facility] Identifying data: Readmission to [facility] for this 55 y/o AA male seeking detox treatment for alcohol and cocaine dependence.Patient is ,a father of four,domiciled,unemployed and supported on Social Security benefits. Substance Abuse History: - Smoking Cessation. Smoking history: Current every day smoker. Have you smoked in the past 12 months: Yes. Aproximately how many cigarettes per day: 4. Cigars Per Day: 0. Hx Chewing Tobacco Use: No. Initiated information on smoking cessation: Yes. 'Breaking Loose' booklet given : 10/18/16 (give on floor). - Substance & Tx. History. Hx Alcohol Use: Yes. Hx Substance Use: Yes. Substance Use Type: Alcohol, Cocaine. Hx Substance Use Treatment: Yes (detox, rehab). - Substances Abused. Alcohol. Route: Oral. Frequency: Daily. Amount used: 1/5 liquor; six 24oz beers. Age of first use : 12. Date of Last Use: 10/18/16. Cocaine. Route: Smoking. Frequency: 3- 6 times per week. Amount used: $100. Age of first use: 39. Date of Last Use: 10/17/16. Confirmed by patient. Medical History: Diabetes mellitus,COPD,bronchial asthma,GERD,lower back pain, arthritis,hypertension and dyslipidemia. Psychiatric History: History of multiple psychiatric hospitalizations since onset of emotional disturbances in 1986.Initially diagnosed with MDD (1986) and later revised to Bipolar Disorder in 2006. Currently,Mr Taylor gets his psychiatric outpatient services at [facility] in [place], [place].Maintained on a regimen of prozac 40 mg/day + seroquel 300 mg/hs (claims strict adherence to aftercare).Patient denies history of suicide attempts. Physical/Sexual Abuse/Trauma History: Patient denies. Additional Comment: Urine Drug Screen Results: MALINDA-Cocaine.Noted. Mental Status Exam - Mental Status Exam Alert and Oriented to: Time, Place, Person Cognitive Function: Good Patient Appearance: Well Groomed Mood: Nervous, Withdrawn, Hopeful Affect: Mood Congruent Patient Behavior: Fatigued, Appropriate, Cooperative Speech Pattern: Clear Voice Loudness: Normal Thought Process: Goal Oriented Thought Disorder: Not Present Hallucinations: Denies Suicidal Ideation: Denies Homicidal Ideation: Denies Insight/Judgement: Poor Sleep: Poorly, Difficulty falling asleep Appetite: Fair Gait/Station: Other (walks with a cane) Psychiatric Findings - Problem List ([place] 1, 2,3) (1) Bipolar II disorder Current Visit: Yes Status: Chronic (2) Alcohol dependence Current Visit: Yes Status: Active (3) Cocaine dependence Current Visit: Yes Status: Active (4) Nicotine dependence Current Visit: Yes Status: Acute Qualifiers: Nicotine product type: cigarettes Substance use status: uncomplicated Qualified Code(s): F17.210 - Nicotine dependence, cigarettes, uncomplicated (5) ARTHRITIS OF KNEES,HANDS Current Visit: Yes Status: Chronic (6) COPD (chronic obstructive pulmonary disease) Current Visit: Yes Status: Chronic Qualifiers: COPD type: emphysema Emphysema type: unilateral Qualified Code(s ): J43.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] (7) Hypertension Current Visit: Yes Status: Chronic Qualifiers: Hypertension type: essential hypertension Qualified Code(s): I10 - Essential (primary) hypertension (8) LOW BACK PAIN Current Visit: Yes Status: Active (9) Asthma Current Visit: Yes Status: Acute - Initial Treatment Plan Initial Treatment Plan: Psychoeducation.Detoxification.Medications : seroquel 200 mg po hs (temporarily reduced as caution against oversedation from drug- drug interaction) + prozac 40 mg po hs.Will titrate seroquel as clinically indicated.Side effects/benefits of both drugs are discussed with the patient who is eager to resume his medications.Teresa is in agrement with [facility].Observation.Medications are confirmed via survey of recent pharmacy claims : filled scripts for 30 day supply of prozac/seroquel registered on @ [facility]NO necessity for scripts at discharge form [facility].
[2016-10-18 17:44] LABS: URINE APPEARANCE CLEAR; URINE BILIRUBIN NEGATIVE (NEGATIVE); URINE BLOOD NEGATIVE (NEGATIVE); URINE COLOR AMBER; URINE GLUCOSE (UA) NEGATIVE (NEGATIVE); URINE KETONE TRACE (NEGATIVE); URINE LEUK ESTERASE NEGATIVE (NEGATIVE); URINE NITRITE NEGATIVE (NEGATIVE); URINE UROBILINOGEN NEGATIVE E.U./dl (0.2-1.0)
[2016-10-18 17:47] LABS: URINE PROTEIN 1+ (NEGATIVE)
[2016-10-18 17:48] LABS: URINE BACTERIA RARE /hpf (NONE SEEN); URINE HYALINE CAST 7 /lpf; URINE MUCUS MANY; URINE RBC 2 /hpf (0-3); URINE WBC 7 /hpf (3-5); YEAST RARE
[2016-10-18] MEDS: chlordiazePOXIDE HCL 25 MG CAPSULE PO SCH ×2 (17:54→22:56)
[2016-10-18] MEDS: LIDOCAINE PATCH REMOVAL MC SCH (22:57)
[2016-10-18] MEDS: THIAMINE HCL 100 MG TABLET (FP) PO SCH (22:59)
[2016-10-18] MEDS: QUEtiapine FUMARATE 200 MG TABLET PO SCH (22:59)
[2016-10-19] MEDS: CYCLOBENZAPRINE HCL 10 MG TABLET (FP) PO PRN (06:05)
[2016-10-19] MEDS: chlordiazePOXIDE HCL 25 MG CAPSULE PO SCH ×4 (06:05→22:32)
[2016-10-19 09:28] LABS: MCH 32.4 pg (25.7-33.7); MCHC 32.7 g/dl (32.0-35.9); MEAN CELL VOLUME 99.2 fl (80-96); MEAN PLT VOLUME 9.2 fl (7.5-11.1); PLATELET COUNT 261 K/MM3 (134-434); RDW 13.4 % (11.9-15.9); WHITE BLOOD COUNT 9.8 K/mm3 (4.0-10.0)
[2016-10-19 09:43] LABS: ALBUMIN 3.6 g/dl (3.4-5.0); BILIRUBIN,TOTAL 0.5 mg/dL (0.2-1.0); CALCIUM 9.4 mg/dL (8.5-10.1); COCKROFT - GAULT 79.18; CREATININE 1.3 mg/dL (0.7-1.3); TOT PROT 6.2 g/dl (6.4-8.2)
[2016-10-19 10:16] LABS: HIV 1 & 2 AB NEGATIVE; HIV 1 AGp24 NEGATIVE
[2016-10-19] MEDS: FLUoxetine HCL 20 MG CAPSULE (FP) PO SCH (10:38)
[2016-10-19] MEDS: PRENATAL VITAMINS W/ FOLIC ACID TABLET (FP) PO SCH (10:38)
[2016-10-19] MEDS: predniSONE 5 MG TABLET (UD) PO SCH (10:38)
[2016-10-19] MEDS: TIOTROPIUM BROMIDE 18 MCG/INH (DEVICE W/ 5 CAPSULES) IH SCH (10:38)
[2016-10-19] MEDS: BUDESONIDE/FORMETEROL FUMARATE 80/4.5 mcg INHALER IH SCH ×2 (10:39→22:30)
--- NOTE | 2016-10-19 16:15 | PN ---
S CIWA - CIWA Score Nausea/Vomitin Muscle Tremors: 3 Anxiety: 3 Agitation: 3 Paroxysmal Sweats: 3 Orientation: 0-Oriented Tacttile Disturbances: 1-Very Mild Itch/Numbness Auditory Disturbances: 0-None Visual Disturbances: 0-None Headache: 2-Mild CIWA-Ar Total Score: 18 S Progress Note (SOAP) Subjective: Body ache, nausea, sweating, interrupted sleep Objective: 10/19/16 16:11 Last Vital Signs Temp Pulse Resp BP Pulse Ox 98.5 F 85 18 144/92 10/19/16 13:59 10/19/16 13:59 10/19/16 13:59 10/19/16 13:59 Laboratory Tests 10/18/16 10/19/16 10/19/16 17:34 06:00 06:20 WBC 9.8 RBC 4.62 Hgb 15.0 Hct 45.9 MCV 99.2 H MCHC 32.7 RDW 13.4 Plt Count 261 MPV 9.2 Sodium Potassium Chloride Carbon Dioxide Anion Gap BUN Creatinine Creat Clearance w eGFR Random Glucose Calcium Total Bilirubin AST ALT Alkaline Phosphatase Total Protein Albumin Urine Color [place] Urine Appearance Clear Urine pH 5.0 D Ur Specific [place] >= 1.030 H Urine Protein 1+ H Urine Glucose (UA) Negative Urine Ketones Trace H Urine Blood Negative Urine Nitrite Negative Urine Bilirubin Negative Urine Urobilinogen Negative Ur Leukocyte Esterase Negative Urine RBC 2 Urine WBC 7 Ur Epithelial Cells Rare Urine Bacteria Rare Hyaline Casts 7 Urine Mucus Many Urine Yeast Rare RPR Titer HIV 1&2 Antibody Screen Negative HIV P24 Antigen Negative 10/19/16 10/19/16 06:20 06:20 WBC RBC Hgb Hct MCV MCHC RDW Plt Count MPV Sodium 144 Potassium 4.4 Chloride 108 H Carbon Dioxide 26 Anion Gap 10 BUN 15 Creatinine 1.3 Creat Clearance w eGFR 57.53 Random Glucose 86 Calcium 9.4 Total Bilirubin 0.5 D AST 22 ALT 26 D Alkaline Phosphatase 122 H D Total Protein 6.2 L Albumin 3.6 Urine Color Urine Appearance Urine pH Ur Specific [place] Urine Protein Urine Glucose (UA) Urine Ketones Urine Blood Urine Nitrite Urine Bilirubin Urine Urobilinogen Ur Leukocyte Esterase Urine RBC Urine WBC Ur Epithelial Cells Urine Bacteria Hyaline Casts Urine Mucus Urine Yeast RPR Titer Nonreactive HIV 1&2 Antibody Screen HIV P24 Antigen Labs noted: UA 1+ protein/abnormal UA Assessment: 10/19/16 16:13 Withdrawal symptoms Noted with proteinuria/abnormal UA Plan: Continue detox Proteinuria: encouraged to drink lots of water, repeat UA
[2016-10-19] MEDS: QUEtiapine FUMARATE 200 MG TABLET PO SCH (22:32)
[2016-10-19] MEDS: THIAMINE HCL 100 MG TABLET (FP) PO SCH (22:34)
[2016-10-20] MEDS: LIDOCAINE PATCH REMOVAL MC SCH ×2 (00:05→22:18)
[2016-10-20] MEDS: chlordiazePOXIDE HCL 25 MG CAPSULE PO SCH ×2 (05:53→10:28)
[2016-10-20] MEDS: CYCLOBENZAPRINE HCL 10 MG TABLET (FP) PO PRN (05:53)
[2016-10-20] MEDS: BUDESONIDE/FORMETEROL FUMARATE 80/4.5 mcg INHALER IH SCH ×2 (10:27→22:16)
[2016-10-20] MEDS: predniSONE 5 MG TABLET (UD) PO SCH (10:27)
[2016-10-20] MEDS: TIOTROPIUM BROMIDE 18 MCG/INH (DEVICE W/ 5 CAPSULES) IH SCH (10:28)
[2016-10-20] MEDS: PRENATAL VITAMINS W/ FOLIC ACID TABLET (FP) PO SCH (10:28)
[2016-10-20] MEDS: FLUoxetine HCL 20 MG CAPSULE (FP) PO SCH (10:28)
--- NOTE | 2016-10-20 11:25 | EKG ---
Test Reason : Blood Pressure : / mmHG Vent. Rate : 089 BPM Atrial Rate : 089 BPM P-R Int : 144 ms QRS Dur : 084 ms QT Int : 380 ms P-R-T Axes : 048 048 056 degrees QTc Int : 462 ms NORMAL SINUS RHYTHM MODERATE VOLTAGE CRITERIA FOR LVH, MAY BE NORMAL VARIANT BORDERLINE ECG WHEN COMPARED WITH ECG OF 24-JUN-2016 21:55, NO SIGNIFICANT CHANGE WAS FOUND Confirmed by COLE HOWARD, SHANNA ([id number]) on 10/20/2016 11:24:57 AM Referred By: Confirmed By:SHANNA GALVAN MD
[2016-10-20 14:23] LABS: URINE APPEARANCE CLEAR; URINE BILIRUBIN NEGATIVE (NEGATIVE); URINE BLOOD NEGATIVE (NEGATIVE); URINE COLOR STRAW; URINE GLUCOSE (UA) NEGATIVE (NEGATIVE); URINE KETONE NEGATIVE (NEGATIVE); URINE LEUK ESTERASE NEGATIVE (NEGATIVE); URINE NITRITE NEGATIVE (NEGATIVE); URINE PROTEIN NEGATIVE (NEGATIVE); URINE UROBILINOGEN NEGATIVE E.U./dl (0.2-1.0)
--- NOTE | 2016-10-20 14:51 | PN ---
S CIWA - CIWA Score Nausea/Vomitin-No Nausea/No Vomiting Muscle Tremors: 3 Anxiety: 4-Mod. Anxious/Guarded Agitation: 3 Paroxysmal Sweats: No Perspiration Orientation: 0-Oriented Tacttile Disturbances: 1-Very Mild Itch/Numbness Auditory Disturbances: 0-None Visual Disturbances: 0-None Headache: 2-Mild CIWA-Ar Total Score: 13 S Progress Note (SOAP) Subjective: Tremor, chills, sweating, interrupted sleep Objective: 10/20/16 14:49 Last Vital Signs Temp Pulse Resp BP Pulse Ox 96.8 F L 73 20 145/97 10/20/16 13:54 10/20/16 13:54 10/20/16 13:54 10/20/16 13:54 Laboratory Tests 10/18/16 10/19/16 10/19/16 17:34 06:00 06:20 WBC 9.8 RBC 4.62 Hgb 15.0 Hct 45.9 MCV 99.2 H MCHC 32.7 RDW 13.4 Plt Count 261 MPV 9.2 Sodium Potassium Chloride Carbon Dioxide Anion Gap BUN Creatinine Creat Clearance w eGFR Random Glucose Calcium Total Bilirubin AST ALT Alkaline Phosphatase Total Protein Albumin Urine Color [place] Urine Appearance Clear Urine pH 5.0 D Ur Specific [place] >= 1.030 H Urine Protein 1+ H Urine Glucose (UA) Negative Urine Ketones Trace H Urine Blood Negative Urine Nitrite Negative Urine Bilirubin Negative Urine Urobilinogen Negative Ur Leukocyte Esterase Negative Urine RBC 2 Urine WBC 7 Ur Epithelial Cells Rare Urine Bacteria Rare Hyaline Casts 7 Urine Mucus Many Urine Yeast Rare RPR Titer HIV 1&2 Antibody Screen Negative HIV P24 Antigen Negative 10/19/16 10/19/16 10/20/16 06:20 06:20 07:12 WBC RBC Hgb Hct MCV MCHC RDW Plt Count MPV Sodium 144 Potassium 4.4 Chloride 108 H Carbon Dioxide 26 Anion Gap 10 BUN 15 Creatinine 1.3 Creat Clearance w eGFR 57.53 Random Glucose 86 Calcium 9.4 Total Bilirubin 0.5 D AST 22 ALT 26 D Alkaline Phosphatase 122 H D Total Protein 6.2 L Albumin 3.6 Urine Color Straw Urine Appearance Clear Urine pH 5.0 Ur Specific [place] Urine Protein Negative Urine Glucose (UA) Negative Urine Ketones Negative Urine Blood Negative Urine Nitrite Negative Urine Bilirubin Negative Urine Urobilinogen Negative Ur Leukocyte Esterase Negative Urine RBC Urine WBC Ur Epithelial Cells Urine Bacteria Hyaline Casts Urine Mucus Urine Yeast RPR Titer Nonreactive HIV 1&2 Antibody Screen HIV P24 Antigen Labs noted Assessment: 10/20/16 14:50 Withdrawal symptoms Noted with abnormal UA Plan: Continue detox Abnormal UA: encouraged to drink lots of water, follow up on UA result (in progress)
[2016-10-20] MEDS: chlordiazePOXIDE 5 MG CAPSULE PO SCH ×2 (17:04→22:17)
[2016-10-20] MEDS: QUEtiapine FUMARATE 200 MG TABLET PO SCH (22:17)
[2016-10-20] MEDS: THIAMINE HCL 100 MG TABLET (FP) PO SCH (22:17)
[2016-10-21] MEDS: chlordiazePOXIDE 5 MG CAPSULE PO SCH ×2 (05:54→10:26)
[2016-10-21] MEDS: BUDESONIDE/FORMETEROL FUMARATE 80/4.5 mcg INHALER IH SCH ×2 (10:25→22:21)
[2016-10-21] MEDS: PRENATAL VITAMINS W/ FOLIC ACID TABLET (FP) PO SCH (10:26)
[2016-10-21] MEDS: FLUoxetine HCL 20 MG CAPSULE (FP) PO SCH (10:26)
[2016-10-21] MEDS: predniSONE 5 MG TABLET (UD) PO SCH (10:26)
[2016-10-21] MEDS: ACLIDINIUM BROMIDE 400 MCG/INH AERO.POWD IH SCH ×2 (10:26→22:22)
--- NOTE | 2016-10-21 11:34 | PN ---
BHS Progress Note (SOAP) Subjective: ANXIETY,SWEATS/CHILLS,DIARRHEA. Objective: 10/21/16 11:33 Vital Signs Temperature 99.1 F 10/21/16 09:20 Pulse Rate 80 10/21/16 09:20 Respiratory Rate 20 10/21/16 09:20 Blood Pressure 158/100 10/21/16 09:20 O2 Sat by Pulse Oximetry (%) Laboratory Last Values WBC 9.8 K/mm3 (4.0-10.0) 10/19/16 06:20 RBC 4.62 M/mm3 (4.00-5.60) 10/19/16 06:20 Hgb 15.0 GM/dL (11.7-16.9) 10/19/16 06:20 Hct 45.9 % (35.4-49) 10/19/16 06:20 MCV 99.2 fl (80-96) H 10/19/16 06:20 MCHC 32.7 g/dl (32.0-35.9) 10/19/16 06:20 RDW 13.4 % (11.9-15.9) 10/19/16 06:20 Plt Count 261 K/MM3 (134-434) 10/19/16 06:20 MPV 9.2 fl (7.5-11.1) 10/19/16 06:20 Sodium 144 mmol/L (136-145) 10/19/16 06:20 Potassium 4.4 mmol/L (3.5-5.1) 10/19/16 06:20 Chloride 108 mmol/L (98-107) H 10/19/16 06:20 Carbon Dioxide 26 mmol/L (21-32) 10/19/16 06:20 Anion Gap 10 (8-16) 10/19/16 06:20 BUN 15 mg/dL (7-18) 10/19/16 06:20 Creatinine 1.3 mg/dL (0.7-1.3) 10/19/16 06:20 Creat Clearance w eGFR 57.53 (>60) 10/19/16 06:20 Random Glucose 86 mg/dL (74-106) 10/19/16 06:20 Calcium 9.4 mg/dL (8.5-10.1) 10/19/16 06:20 Total Bilirubin 0.5 mg/dL (0.2-1.0) D 10/19/16 06:20 AST 22 U/L (15-37) 10/19/16 06:20 ALT 26 U/L (12-78) D 10/19/16 06:20 Alkaline Phosphatase 122 U/L (45-117) H D 10/19/16 06:20 Total Protein 6.2 g/dl (6.4-8.2) L 10/19/16 06:20 Albumin 3.6 g/dl (3.4-5.0) 10/19/16 06:20 Urine Color Straw 10/20/16 07:12 Urine Appearance Clear 10/20/16 07:12 Urine pH 5.0 (5.0-8.0) 10/20/16 07:12 Ur Specific [place] 1.015 (1.005-1.025) 10/20/16 07:12 Urine Protein Negative (NEGATIVE) 10/20/16 07:12 Urine Glucose (UA) Negative (NEGATIVE) 10/20/16 07:12 Urine Ketones Negative (NEGATIVE) 10/20/16 07:12 Urine Blood Negative (NEGATIVE) 10/20/16 07:12 Urine Nitrite Negative (NEGATIVE) 10/20/16 07:12 Urine Bilirubin Negative (NEGATIVE) 10/20/16 07:12 Urine Urobilinogen Negative E.U./dl (0.2-1.0) 10/20/16 07:12 Ur Leukocyte Esterase Negative (NEGATIVE) 10/20/16 07:12 Urine RBC 2 /hpf (0-3) 10/18/16 17:34 Urine WBC 7 /hpf (3-5) 10/18/16 17:34 Ur Epithelial Cells Rare /hpf (FEW) 10/18/16 17:34 Urine Bacteria Rare /hpf (NONE SEEN) 10/18/16 17:34 Hyaline Casts 7 /lpf 10/18/16 17:34 Urine Mucus Many 10/18/16 17:34 Urine Yeast Rare 10/18/16 17:34 RPR Titer Nonreactive (NONREACTIVE) 10/19/16 06:20 HIV 1&2 Antibody Screen Negative 10/19/16 06:00 HIV P24 Antigen Negative 10/19/16 06:00 Assessment: 10/21/16 11:33 WITHDRAWAL SX Plan: CONTINUE DETOX
[2016-10-21] MEDS ORDERED: LISINOPRIL 10 MG TABLET (FP) PO ONE (14:37)
[2016-10-21] MEDS ORDERED: amLODIPine BESYLATE 10 MG TABLET (FP) PO SCH (14:38)
[2016-10-21] MEDS: chlordiazePOXIDE HCL 10 MG CAPSULE PO SCH ×2 (17:05→22:23)
[2016-10-21] MEDS ORDERED: LISINOPRIL 10 MG TABLET (FP) PO SCH (22:00)
[2016-10-21] MEDS: THIAMINE HCL 100 MG TABLET (FP) PO SCH (22:21)
[2016-10-21] MEDS: QUEtiapine FUMARATE 200 MG TABLET PO SCH (22:22)
[2016-10-21] MEDS: LIDOCAINE PATCH REMOVAL MC SCH (22:26)
[2016-10-22] MEDS: CYCLOBENZAPRINE HCL 10 MG TABLET (FP) PO PRN (05:38)
[2016-10-22] MEDS: chlordiazePOXIDE HCL 10 MG CAPSULE PO SCH (05:38)
[2016-10-22 09:35] VITALS: BP 121/92; PULSE 81; TEMP 95.6
--- NOTE | 2016-10-22 12:11 | DS ---
[facility] Detox Discharge Summary Admission Date: 10/18/16 Discharge Date: 10/22/16 - History Additional Comments: DETOX COMPLETED. ALERT O X 3. NAD. Pertinent Past History: ASTHMA - Physical Exam Results Vital Signs: Vital Signs Temperature 95.6 F L 10/22/16 09:34 Pulse Rate 81 10/22/16 09:34 Respiratory Rate 18 10/22/16 09:34 Blood Pressure 121/92 10/22/16 09:34 O2 Sat by Pulse Oximetry (%) - Treatment Hospital Course: Detox Protocol Followed, Detoxed Safely, Responded well, Discharged Condition Good - Medication Discharge Medications: Ambulatory Orders Cyclobenzaprine HCl [Flexeril -] 10 mg PO TID PRN 08/19/13 Albuterol 0.083% Nebulizer Nathalie [Ventolin 0.083% Nebulizer Soln -] 1 neb NEB Q4H PRN 08/24/13 Tiotropium [place] [Spiriva] 1 inh PO DAILY #1 inh 08/24/13 Albuterol Sulfate Inhaler - [Ventolin HFA Inhaler -] 2 puff IH Q4H PRN #1 inhaler 07/07/16 Budesonide/Formeterol Fumarate [SYMBICORT 80/4.5mcg -] 2 puff IH BID #1 inhaler 07/07/16 Prednisone [Deltasone -] 5 mg PO DAILY #30 tablet 07/07/16 Quetiapine Fumarate [Seroquel -] 300 mg PO HS #30 tablet 07/07/16 Fluoxetine HCl [Prozac -] 40 mg PO DAILY 10/18/16 Naproxen [Naprosyn -] 500 mg PO BID 10/18/16 - Diagnosis (1) LOW BACK PAIN Status: Chronic (2) Asthma Status: Chronic Qualifiers: Asthma severity: mild intermittent Asthma complication type: uncomplicated Qualified Code(s): J45.20 - Mild intermittent asthma, uncomplicated (3) Nicotine dependence Status: Acute Qualifiers: Nicotine product type: cigarettes Substance use status: in withdrawal Qualified Code(s): F17.213 - Nicotine dependence, cigarettes, with withdrawal (4) Alcohol dependence with uncomplicated withdrawal Status: Acute (5) COPD (chronic obstructive pulmonary disease) Status: Chronic Qualifiers: COPD type: emphysema Emphysema type: unilateral Qualified Code(s ): J43.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
== END 2016-10-22 09:01 | disposition home or self-care (01) | DRG 774 ==
LOC: YASAS 11:22 → Y3N 13:56
PROVIDERS: ADMIT Internal Medicine; ATTEND Internal Medicine
PROC: HZ2ZZZZ Detoxification Services for Substance Abuse Treatment (ICD-10-PCS; principal; 2016-10-22)
DX: F10.20 Alcohol dependence, uncomplicated (principal); F14.20 Cocaine dependence, uncomplicated; F17.210 Nicotine dependence, cigarettes, uncomplicated; F31.81 Bipolar II disorder; I10 Essential (primary) hypertension; J45.909 Unspecified asthma, uncomplicated; J43.0 Unilateral pulmonary emphysema [MacLeod's syndrome]; M54.5 Low back pain; M12.9 Arthropathy, unspecified; M13.842 Other specified arthritis, left hand; M13.841 Other specified arthritis, right hand; M13.862 Other specified arthritis, left knee; M13.861 Other specified arthritis, right knee
CPT/HCPCS: 36415; 80053; 81003; 81015; 85027; 86593; 87389; 93005; 93010

== ENCOUNTER 2021-09-09 12:01 | Inpatient (IN) | payer OTHER ==
[2021-09-09] MEDS ORDERED: MAGNESIUM HYDROX 2400MG/30ML ORAL SUSPENSION 30 ML CUP PO PRN (12:22)
[2021-09-09] MEDS ORDERED: IBUPROFEN 400 MG TABLET (FP) PO PRN (12:22)
[2021-09-09] MEDS ORDERED: ACETAMINOPHEN 325 MG TABLET (FP) PO PRN ×2 (12:22)
[2021-09-09] MEDS ORDERED: MAGNESIUM CITRATE 300 ML BOTTLE PO PRN (12:22)
[2021-09-09] MEDS ORDERED: BISMUTH SUBSALICYLATE 262 MG/15 ML BTL PO PRN (12:22)
[2021-09-09] MEDS ORDERED: DICYCLOMINE HCL 10 MG CAPSULE PO PRN (12:22)
[2021-09-09] MEDS ORDERED: ONDANSETRON *ODT* 4 MG TABLET SL PRN (12:22)
[2021-09-09] MEDS ORDERED: MAG HYDROX/AL HYDROX/SIMETH 30 ML UNIT-DOSE CUP PO PRN (12:22)
[2021-09-09] MEDS ORDERED: NICOTINE 10 MG CARTRIDGE (INHALER) IH PRN (12:22)
[2021-09-09] MEDS ORDERED: BENZOCAINE/MENTHOL (CHLORASEPTIC ) LOZENGE MM PRN (12:22)
[2021-09-09] MEDS ORDERED: LOPERAMIDE HCL 2 MG CAPSULE PO PRN (12:22)
[2021-09-09 13:20] VITALS: BMI 23.4
[2021-09-09] MEDS: hydrOXYzine PAMOATE 25 MG CAPSULE (FP) PO SCH ×3 (14:42→22:52)
[2021-09-09] MEDS: PRENATAL VITAMINS W/ FOLIC ACID TABLET (FP) PO SCH (14:44)
[2021-09-09] MEDS ORDERED: LISINOPRIL 5 MG TABLET PO ONE (22:44)
[2021-09-09] MEDS: MELATONIN 5 MG TABLETS PO SCH (22:51)
[2021-09-09] MEDS: METHOCARBAMOL 500 MG TABLET PO PRN (22:51)
[2021-09-09] MEDS: THIAMINE HCL 100 MG TABLET (FP) PO SCH (22:52)
[2021-09-10] MEDS: hydrOXYzine PAMOATE 25 MG CAPSULE (FP) PO SCH ×5 (07:07→23:01)
[2021-09-10] MEDS ORDERED: ALBUTEROL SO4 HFA INHALER IH PRN (08:50)
[2021-09-10] MEDS ORDERED: chlordiazePOXIDE HCL 25 MG CAPSULE PO PRN (08:50)
[2021-09-10] MEDS: TIOTROPIUM BROMIDE 2.5 MCG (SPIRIVA) RESPIMAT INHALER IH SCH (10:28)
[2021-09-10] MEDS: PRENATAL VITAMINS W/ FOLIC ACID TABLET (FP) PO SCH (10:30)
[2021-09-10] MEDS: chlordiazePOXIDE HCL 25 MG CAPSULE PO SCH ×3 (10:30→23:01)
[2021-09-10] MEDS: BUDESONIDE/FORMETEROL FUMARATE 80/4.5 mcg INHALER IH SCH ×2 (10:30→23:16)
[2021-09-10] MEDS: METHOCARBAMOL 500 MG TABLET PO PRN ×2 (10:30→23:01)
[2021-09-10 11:48] LABS: HEMATOCRIT 41.6 % (35.4-49); HEMOGLOBIN 13.8 GM/dL (11.7-16.9); MCH 32.8 pg (25.7-33.7); MCHC 33.2 g/dl (32.0-35.9); MEAN CELL VOLUME 98.9 fl (80-96); MEAN PLT VOLUME 8.9 fl (7.5-11.1); PLATELET COUNT 265 10^3/uL (134-434); RBC 4.21 M/mm3 (4.00-5.60); RDW 13.1 % (11.9-15.9); WHITE BLOOD COUNT 8.5 K/mm3 (4.0-10.0)
[2021-09-10 12:10] LABS: CALCIUM 9.1 mg/dL (8.5-10.1)
[2021-09-10 12:11] LABS: ALBUMIN 3.8 g/dl (3.4-5.0); BLOOD UREA NITROGEN 17.4 mg/dL (7-18)
[2021-09-10 12:14] LABS: CREATININE 1.3 mg/dL (0.55-1.3)
[2021-09-10 12:15] LABS: BILIRUBIN,TOTAL 1.1 mg/dL (0.2-1)
[2021-09-10 12:17] LABS: TOT PROT 6.5 g/dl (6.4-8.2)
[2021-09-10] MEDS: THIAMINE HCL 100 MG TABLET (FP) PO SCH (23:01)
[2021-09-10] MEDS: MELATONIN 5 MG TABLETS PO SCH (23:01)
[2021-09-11] MEDS: hydrOXYzine PAMOATE 25 MG CAPSULE (FP) PO SCH ×5 (05:53→23:09)
[2021-09-11] MEDS: chlordiazePOXIDE HCL 25 MG CAPSULE PO SCH ×4 (05:53→23:08)
[2021-09-11] MEDS: BUDESONIDE/FORMETEROL FUMARATE 80/4.5 mcg INHALER IH SCH ×2 (10:36→23:09)
[2021-09-11] MEDS: PRENATAL VITAMINS W/ FOLIC ACID TABLET (FP) PO SCH (10:36)
[2021-09-11] MEDS: TIOTROPIUM BROMIDE 2.5 MCG (SPIRIVA) RESPIMAT INHALER IH SCH (14:04)
[2021-09-11 14:08] LABS: SARS-CoV-2 NAA Not Detected (Not Detected)
[2021-09-11] MEDS: THIAMINE HCL 100 MG TABLET (FP) PO SCH (23:09)
[2021-09-11] MEDS: MELATONIN 5 MG TABLETS PO SCH (23:09)
[2021-09-12] MEDS: chlordiazePOXIDE HCL 25 MG CAPSULE PO SCH ×2 (06:13→10:40)
[2021-09-12] MEDS: hydrOXYzine PAMOATE 25 MG CAPSULE (FP) PO SCH ×3 (06:14→13:47)
[2021-09-12] MEDS: PRENATAL VITAMINS W/ FOLIC ACID TABLET (FP) PO SCH (10:38)
[2021-09-12] MEDS: TIOTROPIUM BROMIDE 2.5 MCG (SPIRIVA) RESPIMAT INHALER IH SCH (10:39)
[2021-09-12] MEDS: BUDESONIDE/FORMETEROL FUMARATE 80/4.5 mcg INHALER IH SCH (10:39)
[2021-09-12] MEDS ORDERED: QUEtiapine FUMARATE 100 MG TABLET (FP) PO SCH (10:45)
[2021-09-12 12:56] VITALS: BP 159/97; PULSE 107; TEMP 98
[2021-09-12] MEDS ORDERED: QUEtiapine FUMARATE 300 MG TABLET PO SCH (22:00)
[2021-09-13] MEDS ORDERED: chlordiazePOXIDE HCL 10 MG CAPSULE PO PRN
[2021-09-13] MEDS ORDERED: chlordiazePOXIDE HCL 10 MG CAPSULE PO SCH (05:00)
[2021-09-14] MEDS ORDERED: chlordiazePOXIDE HCL 10 MG CAPSULE PO SCH (05:00)
[2021-09-15] MEDS ORDERED: chlordiazePOXIDE HCL 10 MG CAPSULE PO ONE (05:00)
== END 2021-09-12 15:29 | disposition left against medical advice (07) | DRG 770 ==
LOC: YASAS 12:01 → Y3N 13:12
PROVIDERS: ADMIT Allergy & Immunology; ATTEND Allergy & Immunology
PROC: HZ2ZZZZ Detoxification Services for Substance Abuse Treatment (ICD-10-PCS; principal; 2021-09-09)
DX: F10.230 Alcohol dependence with withdrawal, uncomplicated (principal); F14.20 Cocaine dependence, uncomplicated; F17.213 Nicotine dependence, cigarettes, with withdrawal; F31.9 Bipolar disorder, unspecified; E78.5 Hyperlipidemia, unspecified; I10 Essential (primary) hypertension; J44.9 Chronic obstructive pulmonary disease, unspecified; K21.9 Gastro-esophageal reflux disease without esophagitis; M54.50 Low back pain, unspecified; G89.29 Other chronic pain
CPT/HCPCS: 36415; 80053; 85027; 86780; 87811; 93005; 93010; C9803-CS; U0003; U0005